=== PATIENT | male | born 1985 | race Two or more races ===

== ENCOUNTER 2017-03-02 22:06 | Inpatient (IN) | payer OTHER ==
[~2017-03-02] VITALS: Ht 180.3 cm; Wt 86.2 kg
[~2017-03-02 22:06] MED LIST: NKM
[2017-03-02] MEDS ORDERED: Morphine Sulfate 4mg/ml Inj IVP ONE (22:15)
[2017-03-02] MEDS ORDERED: LORazepam Inj 2mg/ml 1ml IV ONE (22:15)
[2017-03-02] MEDS ORDERED: Ketorolac 30mg Inj IV ONE (22:15)
--- NOTE | 2017-03-02 22:19 | Emergency Room Report ---
History of Present Illness General Chief Complaint: Pain Source: Patient Present Illness HPI The patient presents with severe back pain. This began when he bent over this morning. He's been unable to ambulate because of severe spasms in severe pain. He states that pain is 7/10. Radiates down the left-hand side. He denies any numbness. There is some weakness because of the pain. Denies any dysuria or fevers. He hasn't been able to move his bowels because he can't sit on the toilet. Also having difficulty urinating for same reason. No incontinence or saddle numbness. No fevers, NVD, dysuria, flank pain, abdominal pain, chest pain, palpitations, headache. He is concerned as he can't sit, stand and walk. The patient tries back several years ago. Was similar in his presentation. He states that x-rays were done and he got better with strong pain medication. No back exercises or recent physical therapy. He flies across country several times a month. The patient has chapped lips because of food allergies several days ago. He denies any hematuria at this time. Denies shortness of breath. He does feel somewhat dehydrated. Allergies: Coded Allergies: PEANUT (Verified Allergy, Unknown, 03/02/17) SOY (Verified Allergy, Unknown, 03/02/17) Patient History Past Medical History: see triage record Social History: Denies: alcohol use, drug use, smoking Social History Narrative Reviewed Nursing Documentation: PMH: Agreed, PSxH: Agreed Nursing Documentation-PM Past Medical History: No Stated History Review of Systems All Other Systems: negative except mentioned in HPI Physical Exam Vital Signs Date Time Temp Pulse Resp B/P Pulse Ox O2 Delivery O2 Flow Rate FiO2 03/02/17 21:58 99.7 90 19 104/77 100 Room Air Sp02 EP Interpretation: reviewed, normal General Appearance: well appearing, no apparent distress, GCS 15 Head: normocephalic Eyes: bilateral eye PERRL, bilateral eye normal inspection ENT: moist mucus membranes, other - chapped lips Neck: supple Respiratory: lungs clear, normal breath sounds Cardiovascular #1: regular rate, rhythm Cardiovascular #2: 2+ radial (R) Gastrointestinal: normal inspection, normal bowel sounds, non tender, no mass, non-distended Musculoskeletal: other - Unable to sit without severe pain, tender - paraspinous more on L - lumbar area Neurologic: alert, oriented x3, motor strength/tone normal, DTRs symmetric, sensory intact - subjective numbness - but feels touch, speech normal, no Babinski Psychiatric: mood/affect normal Reflexes: 2+ knee (R), 2+ knee (L), 2+ ankle (R), 2+ ankle (L) Skin: normal inspection, warm/dry Medical Decision Making Diagnostic Impression: Primary Impression: Intractable back pain Additional Impression: Food allergy ER Course The patient presents with severe back pain with spasm. Differential includes degenerative disc disease, herniation, strain, muscle spasm and lumbar strain. Evaluated with x-rays and treated with analgesics and muscle relaxants. There are no red flag symptoms however because the pain is so severe x-rays will be obtained. Xrays ileus. Normal bone structures. Labs unremarkable except for mild elevated ESR. Required second dose of morphine. States pain radiates to R leg. Patient still unable to sit or walk without severe pain. Fentanyl ordered. Admit med Dr. Casiano. Consider CT or MRI. Laboratory Tests Test 03/02/17 22:30 03/03/17 00:00 Urine Color Pale yellow Urine Appearance Clear Urine pH 8 (4.5-8.0) Urine Specific [place] 1.010 (1.005-1.035) Urine Protein Negative (NEGATIVE) Urine Glucose (UA) Negative (NEGATIVE) Urine Ketones Negative (NEGATIVE) Urine Occult Blood Negative (NEGATIVE) Urine Nitrite Negative (NEGATIVE) Urine Bilirubin Negative (NEGATIVE) Urine Urobilinogen Normal MG/DL (0.0-1.0) Urine Leukocyte Esterase Negative (NEGATIVE) White Blood Count 8.0 K/UL (4.8-10.8) Red Blood Count 5.36 M/UL (4.70-6.10) Hemoglobin 15.9 G/DL (14.2-18.0) Hematocrit 47.9 % (42.0-52.0) Mean Corpuscular Volume 89 FL (80-99) Mean Corpuscular Hemoglobin 29.6 PG (27.0-31.0) Mean Corpuscular Hemoglobin Concent 33.1 G/DL (32.0-36.0) Red Cell Distribution Width 12.0 % (11.6-14.8) Platelet Count 161 K/UL (150-450) Mean Platelet Volume 9.9 FL (6.5-10.1) Neutrophils (%) (Auto) 64.5 % (45.0-75.0) Lymphocytes (%) (Auto) 23.4 % (20.0-45.0) Monocytes (%) (Auto) 10.0 % (1.0-10.0) Eosinophils (%) (Auto) 1.6 % (0.0-3.0) Basophils (%) (Auto) 0.5 % (0.0-2.0) Erythrocyte Sedimentation Rate 20 MM/HR (0-15) H Prothrombin Time 10.5 SEC (9.30-11.50) Prothrombin Time INR 1.0 (0.9-1.1) Sodium Level 142 mEQ/L (135-145) Potassium Level 3.9 mEQ/L (3.4-4.9) Chloride Level 100 mEQ/L (98-107) Carbon Dioxide Level 28 mEQ/L (20-30) Anion Gap 14 (5-15) Blood Urea Nitrogen 11 mg/dL (7-23) Creatinine 0.9 mg/dL (0.7-1.2) Estimate Glomerular Filtration Rate > 60 mL/min (>60) Glucose Level 115 mg/dL (74-106) H Calcium Level 10.0 mg/dL (8.6-10.2) Total Bilirubin 0.5 mg/dL (0.0-1.2) Aspartate Amino Transferase (AST) 22 U/L (5-40) Alanine Aminotransferase (ALT) 28 U/L (3-41) Alkaline Phosphatase 102 U/L (40-129) Total Protein 7.9 g/dL (6.6-8.7) Albumin 4.7 g/dL (3.5-5.2) Globulin 3.2 g/dL Albumin/Globulin Ratio 1.4 (1.0-2.7) Other X-Ray Diagnostic Results Other X-Ray Diagnostic Results : # of Views/Limited Vs Complete: 4 View EP Interpretation: Yes Interpretation: no fractures, no dislocation, no soft tissue swelling Indication: Pain Impression: No acute disease Interpreting ER Provider: Electronically signed by Heladio Randall MD Last Vital Signs Date Time Temp Pulse Resp B/P Pulse Ox O2 Delivery O2 Flow Rate FiO2 03/03/17 01:18 99.6 71 19 115/73 100 Room Air Status: improved Disposition: ADMITTED INPATIENT Condition: Serious Heladio Randall M.D. Mar 02, 2017 22:19
[2017-03-02 23:04] LABS: APPEARANCE,URINE CLEAR; KETONES,URINE NEGATIVE (NEGATIVE); LEUKOCYTE ESTERASE ,URINE NEGATIVE (NEGATIVE); NITRITE,URINE NEGATIVE (NEGATIVE); PH,URINE 8 (4.5-8.0); PROTEIN,URINE NEGATIVE (NEGATIVE); UROBILINOGEN,URINE NORMAL MG/DL (0.0-1.0)
[2017-03-03] VITALS (7 sets, daily range): BP systolic 109–121; BP diastolic 61–79
[2017-03-03] MEDS ORDERED: Cyclobenzaprine 10mg Tab ORAL ONE
[2017-03-03] MEDS ORDERED: Morphine Sulfate 4mg/ml Inj IVP ONE
[2017-03-03] MEDS ORDERED: fentaNYL 100 mcg/2 mL IV ONE (01:15)
[2017-03-03 02:01] LABS: BASOPHILS % (AUTO) 0.5 % (0.0-2.0); EOSINOPHILS % (AUTO) 1.6 % (0.0-3.0); LYMPHOCYTES % (AUTO) 23.4 % (20.0-45.0); MEAN CORPUSCULAR HEMOGLOBIN 29.6 PG (27.0-31.0); MEAN CORPUSCULAR HGB CONC 33.1 G/DL (32.0-36.0); MEAN CORPUSCULAR VOLUME 89 FL (80-99); MEAN PLATELET VOLUME 9.9 FL (6.5-10.1); NEUTROPHILS % (AUTO) 64.5 % (45.0-75.0); PLATELET COUNT 161 K/UL (150-450); RED BLOOD COUNT 5.36 M/UL (4.70-6.10)
[2017-03-03 02:07] LABS: PROTHROMBIN TIME 10.5 SEC (9.30-11.50)
[2017-03-03 02:11] LABS: ALANINE AMINOTRANSFERASE 28 U/L (3-41); ALBUMIN/GLOBULIN RATIO 1.4 (1.0-2.7); ASPARTATE AMINO TRANSFERASE 22 U/L (5-40); CARBON DIOXIDE 28 mEQ/L (20-30); CREATININE 0.9 mg/dL (0.7-1.2); GLOMERULAR FILTRATION RATE > 60 mL/min (>60); HEMOLYSIS 6; TOTAL PROTEIN 7.9 g/dL (6.6-8.7)
[2017-03-03 02:12] LABS: ANION GAP 14 (5-15); CHLORIDE 100 mEQ/L (98-107); POTASSIUM 3.9 mEQ/L (3.4-4.9); SODIUM 142 mEQ/L (135-145)
[2017-03-03] MEDS ORDERED: HYDROmorphone 1mg/ml Carpuject IVP PRN (05:15)
--- NOTE | 2017-03-03 09:31 | Diagnostic Imaging Report ---
Indications: Nontraumatic low back pain. Technique: 3 views of the lumbar spine Findings: Comparison: None Vertebral alignment is intact. No fracture, lytic destruction, or other acute changes are demonstrated. L4-5 disc space mildly narrowed, minimal marginal osteophyte formation. No additional Degenerative changes, deformity, or other chronic changes are demonstrated. IMPRESSION: Mild degenerative disc disease L4-5 Otherwise negative
[2017-03-03] MEDS: Pantoprazole Inj IVP SCH (09:35)
[2017-03-03] MEDS: Heparin 5000 units/ml inj SUBQ SCH ×2 (09:36→20:29)
[2017-03-03] MEDS: Norco 5mg/325mg tab ORAL PRN ×2 (09:44→16:25)
[2017-03-03 09:54] LABS: BASOPHILS % (AUTO) 0.7 % (0.0-2.0); EOSINOPHILS % (AUTO) 1.4 % (0.0-3.0); LYMPHOCYTES % (AUTO) 27.2 % (20.0-45.0); MEAN CORPUSCULAR HEMOGLOBIN 29.5 PG (27.0-31.0); MEAN CORPUSCULAR HGB CONC 32.9 G/DL (32.0-36.0); MEAN CORPUSCULAR VOLUME 90 FL (80-99); MEAN PLATELET VOLUME 9.1 FL (6.5-10.1); MONOCYTES % (AUTO) 9.5 % (1.0-10.0); NEUTROPHILS % (AUTO) 61.2 % (45.0-75.0); PLATELET COUNT 165 K/UL (150-450); RED BLOOD COUNT 5.12 M/UL (4.70-6.10); RED CELL DISTRIBUTION WIDTH 12.3 % (11.6-14.8); WHITE BLOOD COUNT 6.6 K/UL (4.8-10.8)
[2017-03-03 10:18] LABS: ANION GAP 9 (5-15); CARBON DIOXIDE 27 mEQ/L (20-30); CHLORIDE 107 mEQ/L (98-107); CREATININE 0.9 mg/dL (0.7-1.2); GLOMERULAR FILTRATION RATE > 60 mL/min (>60); HEMOLYSIS 7; POTASSIUM 4.9 mEQ/L (3.4-4.9); SODIUM 143 mEQ/L (135-145)
--- NOTE | 2017-03-03 18:16 | History and Physical Report ---
DATE OF ADMISSION: 03/03/2017 CHIEF COMPLAINT: Low back pain. HISTORY OF PRESENT ILLNESS: This is a 31-year-old Indo-English male, who presented to the emergency department yesterday complaining of severe low back pain. The pain started gradually. It radiates to the left side. The patient was started on the pain control and currently, the pain is abating. PAST MEDICAL HISTORY: The patient denies. MEDICATIONS: Known. ALLERGIES: He only reported to peanuts and soy. FAMILY HISTORY: Unremarkable. SOCIAL HISTORY: He lives at home. HABITS: He is nonsmoker and nondrinker. There is no history of illicit drug abuse. REVIEW OF SYSTEMS: HEENT: Hearing and eye sight are normal. Endocrine: No history of diabetes, thyroid, or adrenal problems. Respiratory: He denies shortness of breath, cough, or hemoptysis. Cardiovascular: He denies chest pain. Gastrointestinal: No history of hematochezia, melena, hematemesis, diarrhea, or constipation. Genitourinary: He denies dysuria, frequency, urgency, or hematuria. Neurologic: No history of stroke, syncope, or Parkinson disease. PHYSICAL EXAMINATION: GENERAL: This is a young male, who is in no acute distress. VITAL SIGNS: Blood pressure 109/61, pulse 74 and regular, respirations 21, temperature 97.6 degrees, and O2 saturation 99% on room air. HEENT: The head is normocephalic and atraumatic. Pupils are equal, round, and reactive to light and accommodation consensually. NECK: Supple. Trachea midline. There was no lymphadenopathy or thyromegaly. LUNGS: Clear to auscultation and percussion. HEART: Regular rate and rhythm without rubs, murmurs, or gallops. ABDOMEN: Soft and nontender. Bowel sounds were active. EXTREMITIES: No clubbing, cyanosis, or edema. BACK: He has the lumbar tenderness. Straight leg raising is negative. NEUROLOGIC: He is alert and oriented x4. Cranial nerves II through XII intact. LABORATORY AND ANCILLARY DATA: CBC and CMP are all within normal limits. IMAGING STUDIES: Lumbar x-ray, mild degenerative disk disease L4 and L5. ASSESSMENT: Excruciating low-back pain. PLAN: 1. Pain control. 2. MRI of the lumbar spine. Mónica Casiano M.D. DR: NATO JOB#: [id number] CC:
[2017-03-04] VITALS: BP 110/66
[2017-03-04 04:00] VITALS: BP 124/74
[2017-03-04 08:00] VITALS: BP 117/72
[2017-03-04] MEDS: Pantoprazole Inj IVP SCH ×2 (09:00→10:30)
--- NOTE | 2017-03-04 09:12 | Diagnostic Imaging Report ---
Indication: PAIN Technique: CT scan of the lumbar spine performed without intravenous contrast material. Axial, coronal comment sagittal images were generated. Dose: Total Dose Length Product - DLP [address] Dose Index - CTDIvol(s) 15.98 mGy. Findings: The lumbar spine is intact. There is no fracture. No evidence of bone destruction. Minimal narrowing of the L4-5 disc is noted with a central disc protrusion impinging on the anterior thecal sac. The remaining discs are normal. The foramina are unremarkable. The facets are normal. There is a fluid-filled soft tissue mass in the pelvis, presumably a full bladder. Prominence of the ureters and renal clucking system bilaterally is noted. Impression: Central protrusion of the L4-5 disc. Further evaluation with MRI would be helpful. Distended urinary bladder with mild bilateral hydronephrosis and hydroureter. There is some discrepancy between this report and preliminary reading as it relates to the disc disease.. The CT scanner at [facility] is accredited by the [employer] and the scans are performed using protocols designed to limit radiation exposure to as low as reasonably achievable to attain images of sufficient resolution adequate for diagnostic evaluation.
--- NOTE | 2017-03-04 09:15 | Diagnostic Imaging Report ---
Indication: PAIN Technique: CT scan of the thoracic spine performed without intravenous contrast material. Axial, coronal, and sagittal images were generated. Dose: Total Dose Length Product - DLP [address] Dose Index - CTDIvol(s) 19.81 mGy. Comparison: None Findings: There is some posterior lung atelectasis. Alignment is intact. The discs are maintained. The spinal canal is normal. The paravertebral soft tissues are unremarkable. There is some small peripheral annular calcifications or small unfused spurs at T9-10. Impression: Minimal degenerative change at T9-10. Posterior lung atelectasis. Otherwise negative. This agrees with pulmonary reading. The CT scanner at [facility] is accredited by the [employer] and the scans are performed using protocols designed to limit radiation exposure to as low as reasonably achievable to attain images of sufficient resolution adequate for diagnostic evaluation.
--- NOTE | 2017-03-04 10:07 | General Progress Note ---
Assessment/Plan Assessment/Plan L4-5 disc is noted with a central disc protrusion impinging on the anterior thecal sac. Needs Spine Surgeon. Subjective Allergies: Coded Allergies: PEANUT (Verified Allergy, Unknown, 03/02/17) SOY (Verified Allergy, Unknown, 03/02/17) Subjective Still c/o severe LBP Objective Last 24 Hour Vital Signs Date Time Temp Pulse Resp B/P Pulse Ox O2 Delivery O2 Flow Rate FiO2 03/04/17 08:00 97.7 70 20 117/72 100 Room Air 03/04/17 04:00 97.5 72 20 124/74 99 Room Air 03/04/17 00:00 97.7 65 20 110/66 99 Room Air 03/03/17 20:00 97.9 70 20 121/70 99 Room Air 03/03/17 17:24 97.6 03/03/17 16:08 97.6 74 21 109/61 99 Room Air 03/03/17 12:03 97.9 75 20 118/70 97 Room Air Intake and Output 03/03/17 03/04/17 19:00 07:00 Intake Total 480 ml Output Total 500 ml Balance 480 ml -500 ml Intake Oral 480 ml Output Urine Total 500 ml Height (Feet): 5 Height (Inches): 11.00 Weight (Pounds): 190 Objective CV RR Lungs CTA Abd SNT. BS + E No CCE ADRIANA VÁSQUEZ Mar 04, 2017 10:07
[2017-03-04] MEDS: Heparin 5000 units/ml inj SUBQ SCH ×2 (10:31→20:16)
[2017-03-04 12:00] VITALS: BP 118/74
[2017-03-04 16:00] VITALS: BP 114/71
[2017-03-04 20:00] VITALS: BP 113/69
[2017-03-04] MEDS: Norco 5mg/325mg tab ORAL PRN (20:16)
[2017-03-05] VITALS: BP 112/65
[2017-03-05 04:00] VITALS: BP 111/70
[2017-03-05 08:00] VITALS: BP 126/74
[2017-03-05] MEDS: Norco 5mg/325mg tab ORAL PRN (08:08)
[2017-03-05] MEDS: Heparin 5000 units/ml inj SUBQ SCH ×2 (08:11→20:29)
[2017-03-05] MEDS: Meloxicam 15 MG TAB ORAL SCH (10:50)
[2017-03-05] MEDS: Cyclobenzaprine 10mg Tab ORAL SCH ×2 (10:50→17:32)
[2017-03-05 12:00] VITALS: BP 112/70
--- NOTE | 2017-03-05 12:16 | Consultation ---
DATE OF CONSULTATION: 03/05/2017 CHIEF COMPLAINT: Low back pain. HISTORY OF PRESENT ILLNESS: The patient is a 31-year-old gentleman with one previous history of low back pain when he did sustain an injury, actually he had blacked out. He has not had any issues. Subsequently, he was tying a shoe and all of a sudden had significant pain. He was unable to sit or lay down. He had significant pain. He was admitted to the hospital. Orthopedic consultation was obtained for further care and recommendation. The patient has pain mostly in the lower back and it does radiate up the spine. He does not have radicular symptoms. No lower extremity numbness or tingling. PAST MEDICAL HISTORY: Reviewed from the intake chart. PAST SURGICAL HISTORY: Reviewed from the intake chart. MEDICATIONS: Reviewed from the intake chart. PHYSICAL EXAMINATION: GENERAL: The patient is alert and oriented. He has moderate discomfort. He has tenderness to palpation in the lumbar spine. The lumbar muscles light touch. Reflexes +2. Sensation was greatly intact. Posterior calf soft. LABORATORY AND DIAGNOSTIC DATA: CT scan of the lumbar spine shows some possible central disk protrusion at L4-L5 with minimal facet arthropathy. ASSESSMENT: L4-L5 discogenic pain. DISCUSSION: At this point, I have recommended getting an MRI. Most likely, does not have radicular symptoms and therefore what I recommend is appropriate pain management with Tylenol, meloxicam, and Neurontin, as well as Medrol Dosepak. These should calm down the symptoms enough that we can begin physical therapy. I have to see him back in the office in a week to start outpatient physical therapy if he has continued issues with recommendations including possible surgical consultation will be appropriate. Jerome Frank M.D. DR: MELO JOB#: [id number] CC: BIRD
[2017-03-05] MEDS: Acetaminophen 500mg (ES) tab ORAL SCH ×2 (12:57→17:32)
--- NOTE | 2017-03-05 13:38 | General Progress Note ---
Assessment/Plan Assessment/Plan L4-5 disc is noted with a central disc protrusion impinging on the anterior thecal sac. Seen by Dr. Zac ridley. Awaiting MRI results.. Subjective Allergies: Coded Allergies: PEANUT (Verified Allergy, Unknown, 03/02/17) SOY (Verified Allergy, Unknown, 03/02/17) Subjective Still c/o severe LBP Objective Last 24 Hour Vital Signs Date Time Temp Pulse Resp B/P Pulse Ox O2 Delivery O2 Flow Rate FiO2 03/05/17 12:00 97.7 70 20 112/70 100 Room Air 03/05/17 08:00 97.7 85 20 126/74 98 Room Air 03/05/17 04:00 97.3 68 18 111/70 98 Room Air 03/05/17 00:00 97.5 65 18 112/65 97 Room Air 03/04/17 21:15 98.2 03/04/17 20:00 97.5 78 18 113/69 100 Room Air 03/04/17 16:00 98.2 68 20 114/71 100 Room Air Intake and Output 03/04/17 03/05/17 19:00 07:00 Intake Total 800 ml Output Total 1000 ml 0 ml Balance -200 ml 0 ml Intake Oral 800 ml Output Urine Total 1000 ml 0 ml Height (Feet): 5 Height (Inches): 11.00 Weight (Pounds): 190 Objective CV RR Lungs CTA Abd SNT. BS + E No CCE ADRIANA VÁSQUEZ Mar 05, 2017 13:38
[2017-03-05 16:00] VITALS: BP 125/78
--- NOTE | 2017-03-05 16:21 | Diagnostic Imaging Report ---
Indication: Back pain Technique: MRI examination of the Lumbar spine was performed in a 1.5 Anca magnet. Sequences obtained include sagittal and axial T1 and T2 fast spin echo, and sagittal STIR. No IV gadolinium was given Comparison: none Findings: There is a 4 mm right paracentral disc protrusion at L4-5. The disc abuts the traversing right L5 nerve root which is minimally displaced. There is no lateral recess, central or foraminal stenosis. There is mild narrowing and desiccation of the intervertebral disc. There is mild curvilinear T2 signal within the protruded disc consistent with a small annular fissure. Conus medullaris is seen at T12 and appears normal. Bone marrow signal and alignment are normal. No abnormal fluid collections are identified. Impression: 4 mm right paracentral L4-5 disc contusion with abutting and mild displacement of the traversing right L5 nerve root. Mild desiccation and narrowing of the disc noted.
[2017-03-05 20:29] VITALS: BP 118/70
--- NOTE | 2017-03-05 21:15 | Consultation ---
DATE OF CONSULTATION: 03/05/2017 CHIEF COMPLAINT: Intractable back pain with left-sided radiculopathy. Thank you for this interesting consult. HISTORY OF PRESENT ILLNESS: As you know, the patient is a 31-year-old male with a history of intractable back pain and left-sided radiculopathy. He has a history of this back pain standing back from 2011 when he initially injured his lower back while lifting a tire out of the car in an abnormal position. Currently, since the back pain stems from recent flexion activity, apparently he developed a re-onset of back pain as he notes since 2011. He is comfortable from the standpoint of his lower back, but it appears now he has reactivation of this pain. He currently has significant pain. He has been admitted to the hospital. He did not have any radicular symptoms. Denies any lower extremity numbness, tingling, bowel or bladder symptoms. He described significant discomfort in his lower back which he feels radiates up to his mid back into the parascapular area. PAST MEDICAL HISTORY: The patient denies other than previous low back injury. MEDICATIONS: The patient denies. ALLERGIES: Peanuts and soy. SOCIAL HISTORY: He is a nonsmoker and nondrinker. No history of any drug use. FAMILY HISTORY: Unremarkable. PHYSICAL EXAMINATION: He is in no acute distress at the moment. He has tenderness along his paraspinal musculature. He has positive straight leg raise on examination on the left side to 20 degrees. On the right side contralateral positive straight leg raise, and also positive at 30 degrees. Sensation is intact throughout the first dorsal web space, digits 1 through 5. Motor is intact throughout the EHL, tibialis anterior, gastrocsoleus, and pronator musculature. IMPRESSION AND PLAN: The patient is a 31-year-old male with L4-L5 disk herniation. He is currently being made comfortable with the use of medications such as fentanyl and morphine which have controlled his pain to some degree. He had a spine CAT scan done which demonstrated no abnormalities in the thoracic spine and the lumbar spine. He had a central protrusion of the L4-L5 disk herniation. Question if it a new onset back pain, which has not been initially from since 2011. Ultimately, he will benefit from a lumbar MRI. We reviewed with him today conservative measures that he can take ranging from acupuncture, chiropracty, physical therapy, as well as L4-L5 epidural steroid injection, they would like to have this done in-house. This could be done by Dr. Ami Guaman to be performed here at [facility]. I have given him my information to follow up on an outpatient basis. He understands that ultimately he may benefit from lumbar microdiskectomy, however, given his history in the past of the back pain resolving on its own course with time, I would like to see how he manages with his symptoms with a course of conservative management initially. Leander Sarabia M.D. DR: Anmol JOB#: [id number] CC: Jerome Frank M.D.; Fax#: [phone]
[2017-03-06] VITALS: BP 110/65
[2017-03-06 04:00] VITALS: BP 113/66
[2017-03-06] MEDS: Heparin 5000 units/ml inj SUBQ SCH (09:00)
[2017-03-06] MEDS: Meloxicam 15 MG TAB ORAL SCH (10:06)
[2017-03-06] MEDS: Cyclobenzaprine 10mg Tab ORAL SCH (10:07)
[2017-03-06] MEDS: Norco 5mg/325mg tab ORAL PRN (10:07)
[2017-03-06] MEDS: Acetaminophen 500mg (ES) tab ORAL SCH ×2 (10:07→12:41)
[2017-03-06 11:44] VITALS: BP 112/67
--- NOTE | 2017-03-06 14:24 | General Progress Note ---
Assessment/Plan Assessment/Plan L4-5 disc is noted with a central disc protrusion impinging on the anterior thecal sac. Seen by Dr. Frank. MRI unremarkable. DW Dr. Frank. DC home.. Subjective Allergies: Coded Allergies: PEANUT (Verified Allergy, Unknown, 03/02/17) SOY (Verified Allergy, Unknown, 03/02/17) Subjective Still c/o severe LBP Objective Last 24 Hour Vital Signs Date Time Temp Pulse Resp B/P Pulse Ox O2 Delivery O2 Flow Rate FiO2 03/06/17 11:44 97.6 64 21 112/67 100 Room Air 03/06/17 04:00 97.2 77 19 113/66 97 Room Air 03/06/17 00:00 98.1 79 18 110/65 98 Room Air 03/05/17 20:29 98.1 89 19 118/70 99 Room Air 03/05/17 16:00 98.1 76 20 125/78 99 Room Air Intake and Output 03/05/17 03/06/17 19:00 07:00 Intake Total 320 ml Balance 320 ml Intake Oral 320 ml # Voids 4 2 Height (Feet): 5 Height (Inches): 11.00 Weight (Pounds): 190 Objective CV RR Lungs CTA Abd SNT. BS + E No CCE ADRIANA VÁSQUEZ Mar 06, 2017 14:24
[2017-03-06] MEDS ORDERED: MELOXICAM15 MG ORAL (14:27)
[2017-03-06] MEDS ORDERED: NORCO 5-325 TA1 EACH ORAL (14:27)
[2017-03-06] MEDS ORDERED: ACETAMINOPHEN500 MG ORAL (14:27)
[2017-03-06 16:17] VITALS: BP 119/71
--- NOTE | 2017-03-08 01:00 | Progress Note ---
DATE: 03/06/2017 SUBJECTIVE: The patient is doing well overnight and he has been taking the pain medication. He is feeling a little bit more comfortable. He was able to get up with Physical Therapy yesterday, but does feel like he needs a walker to support himself. He has not had any bowel or bladder issues. OBJECTIVE: Examination shows lumbar muscles. Sensation light touch. Positive straight leg on both right and left. ASSESSMENT AND PLAN: L4-L5 discogenic pain due to his L4-L5 disk herniation. back pain. to the back and he has responded to Medrol Dosepak as well as physical therapy. I think at this point, he is stable to go home. I discussed with him that it is important that he finish out the Medrol Dosepak and start physical therapy. I would like to see him back in the office in the next week if possible to refer him to therapy. I have been asked to provide a prescription for Medrol Dosepak, which I think is reasonable, therefore this was called into his pharmacy. Jerome Frank M.D. DR: QUYEN JOB#: [id number] CC:
--- NOTE | 2017-03-08 04:45 | Discharge Summary 2 SIG ---
DATE OF ADMISSION: 03/03/2017 DATE OF DISCHARGE: 03/06/2017 CONSULTANTS: 1. Leander Sarabia M.D. 2. Jerome Frank M.D. BRIEF HOSPITAL COURSE: The patient is a 31-year-old, Indo[place] male, who presented to the emergency department complaining of severe low back pain that started gradually radiating to the left side. He has been unable to ambulate because of severe spasms and severe pain. Denied any numbness, but with some weakness because of pain. On evaluation at ED, lumbar spine x-ray showed degenerative disk disease on L4-L5, otherwise negative. At ED, the patient was given analgesics and muscle relaxants, however, still continued to be unable to sit or walk. The patient was then admitted to medical floor for further evaluation. He was seen by Dr. Frank. The patient did not have radicular symptoms. No lower extremity numbness or tingling. He had a CT scan of the lumbar spine that showed central protrusion at L4-L5. Recommend an MRI. Thoracic CT scan showed minimal degenerative changes on T9-T10, otherwise negative. Dr. Sarabia was also consulted. Lumbar spine MRI showed a 4 mm right paracentral L4-L5 disk contusion with mild displacement of the traversing right L5 nerve root with mild desiccation and narrowing of the disk. He was advised conservative measures including acupuncture, chiropractic, physical therapy as well as epidural steroid injections, which could be done as outpatient. The patient was eventually discharged home. FINAL DIAGNOSES: 1. L4-L5 disk protrusion. 2. Severe low back pain. Mónica Casiano M.D. I have been assigned to dictate discharge summary on this account and I was not involved in the patient's management. Janet Frye N.P. DR: JOSSELIN JOB#: [id number] CC:
== END 2017-03-06 19:15 | disposition home or self-care (01) | DRG 552 ==
LOC: EDBD 22:06 → EMR 22:30 → 4E 03-03 02:09 → EDBEDREQ 03-03 04:18 → 4E 03-03 22:10
DX: M51.16 Intervertebral disc disorders with radiculopathy, lumbar region (principal)
CPT/HCPCS: 36415; 72020; 72128; 72131; 72148; 80048; 80053; 81003; 85025; 85610; 85651; J2405